=== PATIENT | female | born 1935 | race Caucasian/White ===

== ENCOUNTER 2017-07-19 12:21 | Emergency (ER) | payer MEDICARE, OTHER ==
[~2017-07-19] VITALS: Ht 167.6 cm; Wt 63.5 kg
[~2017-07-19 12:21] MED LIST: ARNUITY ELLIP100 MCG; ASPIRIN EC81 MG; CALCIUM-MAGNES1 EAC5; DOXEPIN HCL25 MG; ESTRADIOL0.5 MG; LOSARTAN-HCTZ1 EACH; MEDI SLEEP; NAPROXEN500 MG; OMEGA 3 1,0001 EACH; VITAMIN C500 MG; VITAMIN D5000 UNIT; VITAMIN E100 UNI3
[2017-07-19] MEDS ORDERED: TOPROL XL50 MG PO (12:45)
== END 2017-07-19 14:54 | disposition home or self-care (01) ==
LOC: ED 12:21
DX: R07.89 Other chest pain (principal); I10 Essential (primary) hypertension; F41.9 Anxiety disorder, unspecified; Z90.710 Acquired absence of both cervix and uterus; Z88.1 Allergy status to other antibiotic agents; Z88.2 Allergy status to sulfonamides; Z88.8 Allergy status to other drugs, medicaments and biological substances; Z79.82 Long term (current) use of aspirin; Z79.899 Other long term (current) drug therapy
CPT/HCPCS: 71101; 80053; 81001; 83690; 85025; 99283

== ENCOUNTER 2019-05-16 13:33 | Emergency (ER) | payer MEDICARE, OTHER ==
[~2019-05-16] VITALS: Ht 167.6 cm; Wt 63.5 kg
[~2019-05-16 13:33] MED LIST changes: +TOPROL XL50 MG PO
== END 2019-05-16 19:16 | disposition short-term general hospital (02) ==
LOC: ED 13:33
DX: K55.9 Vascular disorder of intestine, unspecified (principal); N17.9 Acute kidney failure, unspecified; I10 Essential (primary) hypertension; F41.9 Anxiety disorder, unspecified; Z88.1 Allergy status to other antibiotic agents; Z88.8 Allergy status to other drugs, medicaments and biological substances; Z88.2 Allergy status to sulfonamides; Z79.899 Other long term (current) drug therapy; Z79.82 Long term (current) use of aspirin
CPT/HCPCS: 51702; 51798; 74176; 80053; 83605; 83690; 85025; 96368; 99285-25; J0696; J7030

== ENCOUNTER 2021-05-25 23:05 | Inpatient (IN) | payer MEDICARE, OTHER ==
[~2021-05-25] VITALS: Ht 167.6 cm; Wt 62.1 kg
--- NOTE | ~2021-05-25 | DS ---
[facility] [address], [place] [address] Draft ADMISSION DATE: 05/25/2021 DISCHARGE DATE: 05/30/2021 REASON FOR ADMISSION: This 86-year-old white woman is a patient of Dr. Dionne Reno, had sudden onset at approximately 9:30 p.m. of severe and unrelenting left lower extremity pain. The patient is known to have atrial fibrillation, but not chronically anticoagulated. She had been on Coumadin for about a month and a half, which she did not tolerate (nausea) and therefore it was discontinued. She declined thrombin inhibitor therapy due to the excessive cost. She was instead taking aspirin daily. She has underlying problems with hypertension in addition to her atrial fibrillation. Her presentation in the emergency room was included evaluation by Dr. Alberto. Clinical findings showed a cold left lower extremity with marked pain. CT angiogram was performed showing occlusive thrombus in the left distal common femoral artery. Dr. Alberto had endeavor transferring elsewhere, but there was no available bed and I was subsequently consulted. Heparin drip was initiated at 800 units an hour after a bolus of 4500 units of heparin. She is admitted for further evaluation and care. PERTINENT PHYSICAL EXAMINATION: GENERAL: Showed an elderly white woman who is reasonably comfortable. CHEST: Shows normal respiratory excursion without tachypnea. Pulse is irregularly irregular consistent with atrial fibrillation. EKG confirmed this as well. EXTREMITIES: Showed the right lower extremity to have a femoral pulse of 3/3 in the groin and a dorsalis pedis pulse which was easily palpable. The left side showed only a faint femoral pulse on deep palpation and no evidence of dorsalis pedis or posterior tibial pulse on the left side. The foot was cool and pale. CT scan was reviewed confirming previously noted findings. The visualized infrarenal aorta has no evidence of severe stenosis, but only mild atherosclerosis and no sign of aneurysm. HOSPITAL COURSE: The patient was considered to have a probable embolism from her chronic atrial fibrillation without anticoagulation causing embolic phenomena to the left lower extremity. In the hosiery looper hours of May 26, she underwent left femoral arterial exploration with arterial embolectomy. Angiogram was performed as well showing good clearance of the clot and good flow to the superficial femoral artery and popliteal and at least two of its branches. She was maintained with a heparin drip postoperatively and monitored in the intensive PATIENT NAME: ADITHYA KRUEGER DISCHARGE SUMMARY DATE OF : 39 REPORT #: [id number] PHYSICIAN: AREN CATALAN MD PCP: DIONNE RENO MD REPORT IS CONFIDENTIAL AND NOT TO BE RELEASED WITHOUT AUTHORIZATION [facility] [address], [place] [address] Draft care unit. Palpable pulse was restored. Her heparin drip was titrated to beneficial effect and medical consultation was undertaken with Dr. Abernathy. She had no evidence of development of hematoma of the groin, although she did have some ecchymosis, no doubt related to exploration on full anticoagulation, but maintained good dorsalis pedis pulse and alevism of flow to the leg. By day of discharge, she is ambulating well. Has palpable dorsalis pedis pulse. The incision is healing well. The plan has been outlined for Xarelto 15 mg p.o. b.i.d. for the 1st 21 days and 20 mg daily thereafter. She will pursue the medication discount opportunity that has been presented to her. She will be needing to fill out various paperwork and she understands that. She is instructed to walk on a daily basis and keep the left groin incision clean and dry. Steri-Strips will be in place. FOLLOWUP PLANS: I will ask her to be seen by her primary provider within the next two weeks and I will be planning to see her back in four weeks or so. If she has problems in the meantime, she will let me know. DISCHARGE DIAGNOSES: 1. Acute embolism to left lower extremity related to atrial fibrillation without anticoagulation. 2. Status post left femoral arterial embolectomy with completion angiogram. 3. Hypertension. 4. Dyslipidemia. MD SARAH Osborn/DOML /[id number] cc: MD Dionne Phipps MD PATIENT NAME: ADITHYA KRUEGER DISCHARGE SUMMARY DATE OF : 39 REPORT #: [id number] PHYSICIAN: AREN CATALAN MD PCP: DIONNE RENO MD REPORT IS CONFIDENTIAL AND NOT TO BE RELEASED WITHOUT AUTHORIZATION [facility] [address], [place] [address] Alberto Copies: LOUIS ABERNATHY JONATHAN MD ~ PATIENT NAME: ADITHYA KRUEGER NHI DISCHARGE SUMMARY DATE OF : 39 REPORT #: [id number] PHYSICIAN: AREN CATALAN MD PCP: DIONNE RENO MD REPORT IS CONFIDENTIAL AND NOT TO BE RELEASED WITHOUT AUTHORIZATION
[~2021-05-25 23:05] MED LIST changes: -CALCIUM-MAGNES1 EAC5; +CALCIUM-MAGNES1 EAC5 PO; +COUMADIN4 MG PO; +DILTIAZEM 24HR240 M1 PO; -DOXEPIN HCL25 MG; +DOXEPIN HCL50 MG PO; +FLUTICASONE PRO16 GM NAS; +IRON325 M1 PO; +LIPITOR40 MG PO; +MAG-OXIDE400 MG PO; -OMEGA 3 1,0001 EACH; +OMEGA 3 1,0001 EACH PO; +PRILOSEC OTC20 MG PO; +PURE PO; +VITAMIN C500 M4 PO; -VITAMIN C500 MG; +VITAMIN D325 MCG PO; -VITAMIN D5000 UNIT; -VITAMIN E100 UNI3; +VITAMIN E400 UNIT PO; +XVITE TABLET1 EACH PO; +[UNRECOGNIZED DRUG - OTHER] PO
--- NOTE | 2021-05-27 15:53 | HP ---
[facility] [address] [place], [place] [address] Signed ADMISSION DATE: 05/26/2021 TIME: 2:30 a.m. PROBLEM: Acute left cold leg with atrial fibrillation. HISTORY: This 86-year-old white woman is a patient Dr. Dionne Reno, and had the sudden onset at approximately 9:30 p.m. of severe and unrelenting left lower extremity pain. The patient is known to have atrial fibrillation, but is not chronically anticoagulated. She had been on Coumadin, that "made her sick" and therefore this was discontinued quite sometime ago. She declined thrombin inhibitor therapy due to its excessive cost... she has taken aspirin instead. The patient presented to the emergency room, was evaluated by Dr. Alberto. A CT angiogram was performed, which showed findings consistent with left lower extremity acute occlusive thrombus in the left common femoral artery. Dr. Alberto had endeavored to transfer the patient for this acute vascular emergency calling [facility], [facility], and [facility], all of which were full and for which transport would be delayed even if a bed was available on the basis of no emergency medical personnel for transport. This has recently been a common phenomenon with the spike in hospitalization due to the viral pandemic, it is noted. After all of this, I was consulted. The patient was begun on heparin infusion after bolus of 4500 units of heparin and is now on an 800 unit drip. PAST MEDICAL HISTORY: Dominantly that of atrial fibrillation. She denies other problems other than hypertension. She is accompanied by her ongzyrdy-is-ike at this time. REVIEW OF SYSTEMS: She denies any chest pain or shortness of breath. She has no complaints of pain in the right lower extremity nor any abdominal or chest problems, otherwise. Electronically Signed By: AREN CATALAN MD 05/27/21 1553 PATIENT NAME: ADITHYA KRUEGER HISTORY AND PHYSICAL DATE OF : 39 REPORT #: [id number] PHYSICIAN: AREN CATALAN MD PCP: DIONNE RENO MD REPORT IS CONFIDENTIAL AND NOT TO BE RELEASED WITHOUT AUTHORIZATION [facility] [address] [place], [place] [address] Signed PHYSICAL EXAMINATION: GENERAL: A pleasant elderly white woman who is reasonably comfortable at the moment. CHEST: Shows normal respiratory excursion without tachypnea. Pulse is irregularly irregular consistent with atrial fibrillation. An EKG has been ordered. ABDOMEN: Soft and nontender. EXTREMITIES: Examination of the left lower extremity shows it to be cool and pale. I detect no dorsalis pedis pulse nor any femoral pulse at this time. On the right side, is a warm leg with a bounding right femoral pulse and easily palpable right dorsalis pedis pulse. CT scan report and images are reviewed. The visualized infrarenal aorta does have atherosclerosis, but no sign of aneurysm. The right lower extremity has good and patent dominant vessels including the tibioperoneal trunk and elsewhere. On the left side, the left common iliac and left internal iliac and the left external iliac are patent. There is an occlusive thrombus of the left common femoral artery. The left deep femoral (profunda) is patent. There are multifocal extensive occlusive and partially occlusive thrombus of the left superficial femoral artery. Limited blood flow in the distal vessel and occlusive thrombus limiting the assessment of clot burden apparently. The left popliteal is patent. There is occlusive thrombus in the distal vessel, however. There is nonopacification of the left anterior tibial and tibioperoneal trunk. ASSESSMENT: Most likely, the patient has suffered an acute arterial embolus to the left superficial femoral artery. I have recommended continued anticoagulation and exploration of the left common femoral artery with left arterial embolectomy as able. I discussed with the patient and her daughter the serious nature of this problem and the recommended treatment. We will continue with heparin infusion and provide surgical relief of the occlusive process as promptly as possible. She remains high hazard of complete or partial limb loss, it is noted. She obviously will need to be persistently anticoagulated, perhaps with a thrombin inhibitor if intolerant of Coumadin, but for now, arterial infusion of heparin is most appropriate to prevent progression of thrombus. They understand the special risks and agreed to proceed. Aren Catalan MD Electronically Signed By: AREN CATALAN MD 05/27/21 1553 PATIENT NAME: ADITHYA KRUEGER HISTORY AND PHYSICAL DATE OF : 39 REPORT #: [id number] PHYSICIAN: AREN CATALAN MD PCP: DIONNE RENO MD REPORT IS CONFIDENTIAL AND NOT TO BE RELEASED WITHOUT AUTHORIZATION [facility] [address] [place], [place] [address] Signed /JONO /[id number] cc: MD Dionne Vargas MD Copies: ASHLEY ALBERTO MD, JONATHAN MD ~ Electronically Signed By: AREN CATALAN MD 05/27/21 1553 PATIENT NAME: ADITHYA KRUEGER NHI HISTORY AND PHYSICAL DATE OF : 39 REPORT #: [id number] PHYSICIAN: AREN CATALAN MD PCP: DIONNE RENO MD REPORT IS CONFIDENTIAL AND NOT TO BE RELEASED WITHOUT AUTHORIZATION
--- NOTE | 2021-05-27 15:53 | OR ---
[facility] [address] [place] [address] Signed DATE OF OPERATION: 05/26/2021 SURGEON: Aren Catalan MD PROCEDURE: After left common femoral thromboembolectomy, a attachment was secured into the distal common femoral artery. Under direct infusion of radiocontrast, fluoroscopic control was used to ascertain patency of the vessel. Several static views and at least one fluoroscopic view showed patency of the common femoral and superficial femoral arteries down to and beyond the popliteal trifurcation. CONCLUDING DIAGNOSIS: Re-establishment of flow to the left lower extremity by arteriographic evidence. MD SARAH Osborn/MODL /[id number] Copies: ~ Electronically Signed By: AREN CATALAN MD 05/27/21 1553 PATIENT NAME: ADITHYA KRUEGER OPERATIVE REPORT DATE OF : 39 REPORT #: [id number] PHYSICIAN: AREN CATALAN MD PCP: DIONNE AVILA MD REPORT IS CONFIDENTIAL AND NOT TO BE RELEASED WITHOUT AUTHORIZATION
--- NOTE | 2021-05-27 15:53 | OR ---
[facility] [address] [place], [place] [address] Signed DATE OF OPERATION: 05/26/2021 SURGEON: Aren Catalan MD TIME: 05:40 a.m. PREOPERATIVE DIAGNOSES: 1. Acute left leg ischemia. 2. Atrial fibrillation (non-anticoagulated). POSTOPERATIVE DIAGNOSES: 1. Left superficial femoral artery embolism. 2. Atrial fibrillation (non-anticoagulated). PROCEDURES: 1. Exploration of left groin and left femoral arterial embolectomy (#5 Shaka catheter device). 2. Left femoral angiogram. WELDING MACHINE OPERATOR SUBMERGED ARC: Airam Ulrich, RN, and scrub nurse Tapan Dennis RN. ANESTHESIA: General endotracheal, Greg Cavazos CRNA INDICATIONS: This 86-year-old white woman presented to the emergency room with an acutely painful and cool left lower extremity. She was evaluated by Dr. Alberto and found to be pulseless on that side. The patient is known to have long-standing atrial fibrillation, but was intolerant of Coumadin anticoagulation and has not been on other anticoagulant. Likely is the probability of arterial embolism to the lower extremity. A CT angiogram was performed under the direction of Dr. Alberto, which confirmed this finding. Clinical examination shows her to have a good pulse on the right side including dorsalis pedis pulse and thus less likely to have advanced atherosclerosis and therefore less likely to have acute thrombosis of already diseased artery, but more likely embolism as clinically suggested. I have reviewed all this with the patient and her rgcgqbpt-ec-iut who attends to her and I have recommended emergency exploration of the groin and femoral arterial embolectomy. Heparin infusion and bolus had been started prior to my being Electronically Signed By: AREN CATALAN MD 05/27/21 1553 PATIENT NAME: ADITHYA KRUEGER OPERATIVE REPORT DATE OF : 39 REPORT #: [id number] PHYSICIAN: AREN CATALAN MD PCP: DIONNE RENO MD REPORT IS CONFIDENTIAL AND NOT TO BE RELEASED WITHOUT AUTHORIZATION [facility] [address] [place], [place] [address] Signed notified of this through the emergency room. The patient and her [id number] understand well the risk of bleeding, infection, failure to completely clear clot and of course recurrent disease. The possibility of limb loss is high and other cardiovascular complications given her underlying atrial fibrillation are also problematic but well understood by them both. FINDINGS: The [place] common femoral and superficial femoral arteries were quite soft and without significant atherosclerotic disease. The profunda femoris was in typical position, but there was an arterial branch, likely the medial circumflex artery posteriorly which was additionally controlled. Thrombectomy with #5 Randolph arterial embolectomy catheter delivered well-organized clot which extended from the distal common femoral artery. Additional small amounts of fresh clot from more distal artery was noted. An on-table angiogram showed excellent flow through the embolectomy segment with good bifurcation flow below the knee. At the conclusion of procedure, a palpable dorsalis pedis pulse was noted and flow has been clinically restored to the lower extremity. DESCRIPTION OF PROCEDURE: The patient was brought to the operating room and given a general endotracheal anesthetic. Ancef antibiotic was given preoperatively. The patient was on a heparin drip at 800 units an hour having undergone bolus of 4500 units in the ER. A frog leg position was maintained after placement of a Randolph catheter. The abdomen was prepped from costal margin distalward completely to the foot on the left and to just below the knee on the right. A longitudinal hockey-stick type incision was made in the left groin area with the faint pulse of the still patent common femoral artery noted. Dissection was carried through the subcutaneous tissue with electrocautery and sharp dissection. The femoral sheath was incised. The artery identified. Meticulous dissection was undertaken directly over the artery which was soft, but without palpable pulse in the distal portion of common femoral artery. Dissection was taken distalward onto the superficial femoral artery, which was dissected free in the usual way and encircled with the yellow vessel loop. The profunda femoris was dissected free laterally and ultimately dissection taken as proximal as reasonable on the common femoral artery. It too was encircled with the yellow vessel loop. The vessel loops occluded inflow and a small arteriotomy made with an #11 blade. There was still persistent rather vigorous flow. The occluding inflow seemed to be secure, but still there was significant flow from the arteriotomy site and therefore it was temporarily secured with a 6-0 Prolene. Additional dissection was undertaken in the posterior aspect of the common femoral artery demonstrating an Electronically Signed By: AREN CATALAN MD 05/27/21 1553 PATIENT NAME: ADITHYA KRUEGER NHI OPERATIVE REPORT DATE OF : 39 REPORT #: [id number] PHYSICIAN: AREN CATALAN MD PCP: DIONNE RENO MD REPORT IS CONFIDENTIAL AND NOT TO BE RELEASED WITHOUT AUTHORIZATION [address] [address] Signed accessory deep femoral vessel somewhat medially and posteriorly oriented. This likely represented a medial circumflex femoral vessel originating directly from the common femoral artery. This was also secured with a yellow vessel loop. Repeat occlusion of the vessels allowed for repeat arteriotomy this time showing good hemostasis. The arteriotomy was extended with Rose scissors distally revealing an underlying organized howard dark thrombus. Release of the proximal occluding vessel loop showed vigorous antegrade flow from the common femoral and some extrusion of minimal clot. A #5 Shaka embolectomy catheter was passed retrograde into the common femoral to as high as the aorta and gently withdrawn delivering no additional clot. The vigorous flow was secured with the vessel loop. With meticulous care, the embolectomy catheter was passed down the arteriotomy distalward into the superficial femoral artery. Careful withdrawal of the inflated balloon was undertaken delivering thrombus and reestablishment of some retrograde flow in the superficial femoral artery. Additional passes were taken down the profunda femorals (including aberrant one) showing vigorous retrograde flow. An additional pass was made in the superficial femoral artery at least to the level of the trifurcation gently inflated and carefully withdrawn and a small amount of dark thrombus noted. The artery was then infused with a syringe full of heparinized saline solution as was the proximal common femoral. Using the metal arterial attachment to a syringe an on-table angiogram was performed. This showed complete patency from the superficial femoral artery distalward including beyond the popliteal into trifurcation vessels. The arteriotomy was closed with a running 6-0 vascular Prolene suture prior to complete closure. Antegrade flow was used to "burp" the site of air and retrograde flow from the two profunda femoral branches also established. The arteriotomy was completed, and flow restored to the deep profunda areas and ultimately to the superficial femoral. Excellent palpable pulse was noted in the superficial femoral artery as well as the deep femoral branches. Examination of the left foot was undertaken demonstrating a Doppler signal in the posterior tibial artery. The wound was then closed with running 2-0 Vicryl suture after application of fibrin glue (Tisseel) to the arteriotomy site and surrounding tissue. Irrigation had been undertaken copiously prior to that. Photographs were taken throughout as well. The layers of the groin were reapproximated with 2-0 Vicryl and interrupted 2-0 Vicryl was used for the deep dermis. The skin was then closed with running subcuticular 3-0 Vicryl. Steri-Strips were applied as was an Acticoat silver sponge dressing. Electronically Signed By: AREN CATALAN MD 05/27/21 1553 PATIENT NAME: ADITHYA KRUEGER OPERATIVE REPORT DATE OF : 39 REPORT #: [id number] PHYSICIAN: AREN CATALAN MD PCP: DIONNE RENO MD REPORT IS CONFIDENTIAL AND NOT TO BE RELEASED WITHOUT AUTHORIZATION [facility] [address] [place] [id number] Signed Evaluation of the foot showed a palpable dorsalis pedis pulse with clinical mormonism of blood flow to the extremity. The patient was ultimately extubated and transported to the Intensive Care Unit directly for further management with a heparin infusion in place. Blood flow was considered to be less than 50 cc. Sponge, needle and instrument counts were reported as correct. MD SARAH Osborn/JONO /[id number] cc: Dr. Kong Reno MD Copies: DIONNE RENO MD ~ Electronically Signed By: AREN CATALAN MD 05/27/21 1553 PATIENT NAME: ADITHYA KRUEGER [facility] OPERATIVE REPORT DATE OF : 39 REPORT #: [id number] PHYSICIAN: AREN CATALAN MD PCP: DIONNE RENO MD REPORT IS CONFIDENTIAL AND NOT TO BE RELEASED WITHOUT AUTHORIZATION
--- NOTE | 2021-05-29 14:39 | PATH ---
[facility] [address] [place], [place] [address] Signed SPECIMEN(S): A THROMBUS SPECIMEN SOURCE: A. THROMBUS CLINICAL HISTORY: Thrombus. Left femoral embolectomy. FINAL PATHOLOGIC DIAGNOSIS: Thrombus, left femoral, embolectomy: - Consistent with thrombus. BRP:cml:C2NR MICROSCOPIC EXAMINATION: Histologic sections of all submitted blocks are examined by light microscopy. These findings, together with the gross examination, support the pathologic diagnosis. GROSS DESCRIPTION: The specimen, labeled "NE," and designated on the requisition "thrombus, thrombus + left lower ext.," is received in formalin and consists of four somewhat tubular-shaped, red, rubbery tissue pieces that are consistent with clotted blood and are from 0.4 up to 1.0 cm in diameter and from 0.8-3.2 cm long. A discrete mass/lesion is not grossly identified. Calcifications are not grossly identified. Transition Coach sections are submitted in one cassette (A1). AI (under the direct supervision of a pathologist) The Gross Description was prepared using a voice recognition system. The report was reviewed for accuracy; however, sound-alike word errors, addition and/or deletions may occur. If there is any question about this report, please contact Client Services. PERFORMING LABORATORY: The technical component was performed by [facility], [address] [place] [id number] (Rock Crusher: Meka Martinez MD; CLIA# [id number]). [facility], [address] [address] (CLIA# [id number]). Diagnostician: Rusty Ignacio MD Pathologist PATIENT NAME: ADITHYA KRUEGER PATHOLOGY DATE OF : 39 REPORT #: [id number] PHYSICIAN: [facility] PCP: DIONNE AVILA MD REPORT IS CONFIDENTIAL AND NOT TO BE RELEASED WITHOUT AUTHORIZATION [address] [place], [place] [address] Signed Electronically Signed 05/29/2021 Copies: ~ PATIENT NAME: ADITHYA KRUEGER PATHOLOGY DATE OF : 39 REPORT #: [id number] PHYSICIAN: [facility] PCP: DIONNE AVILA MD REPORT IS CONFIDENTIAL AND NOT TO BE RELEASED WITHOUT AUTHORIZATION
--- NOTE | 2021-05-29 22:13 | EKG ---
[facility] [address] [place] [address] Signed Atrial fibrillation with slow ventricular response Low voltage QRS Septal infarct , age undetermined Abnormal ECG No previous ECGs available Confirmed by RIMA PIERRE MD ([id number]) on 05/29/2021 10:07:59 PM Electronically Signed By: RIMA PIERRE MD 05/29/212211 Electronically Signed By: RIMA PIERRE MD 05/29/212211 Electronically Signed By: RIMA PIERRE MD 05/29/212211 Electronically Signed By: RIMA PIERRE MD 05/29/212211 Electronically Signed By: RIMA PIERRE MD 05/29/212211 Electronically Signed By: RIMA PIERRE MD 05/29/212212 Electronically Signed By: RIMA PIERRE MD 05/29/212212 Electronically Signed By: RIMA PIERRE MD 05/29/212212 Electronically Signed By: RIMA PIERRE MD 05/29/212212 Electronically Signed By: RIMA PIERRE MD 05/29/212212 Electronically Signed By: RIMA PIERRE MD 05/29/212212 Electronically Signed By: RIMA PIERRE MD 05/29/212212 Electronically Signed By: RIMA PIERRE MD 05/29/212212 Electronically Signed By: RIMA PIERRE MD 05/29/212212 Electronically Signed By: RIMA PIERRE MD 05/29/212212 Electronically Signed By: RIMA PIERRE MD 05/29/212212 Electronically Signed By: RIMA PIERRE MD 05/29/212212 Electronically Signed By: RIMA PIERRE MD 05/29/212212 Electronically Signed By: RIMA PIERRE MD 05/29/21 2213 PATIENT NAME: ADITHYA KRUEGER Electrocardiogram DATE OF : 39 PHYSICIAN: RIMA PIERRE MD REPORT #: [id number] REPORT IS CONFIDENTIAL AND NOT TO BE RELEASED WITHOUT AUTHORIZATION
[2021-05-30] MEDS ORDERED: XARELTO10 MG PO ×2 (10:54→10:56)
[2021-05-30] MEDS ORDERED: METOPROLOL TART25 MG PO (10:57)
[2021-05-30] MEDS ORDERED: ACETAMINOPHEN500 MG PO (10:58)
[2021-05-30] MEDS ORDERED: XARELTO15 MG PO (11:48)
--- NOTE | 2021-06-01 12:32 | DS ---
[facility] [address], [place] [address] Signed ADMISSION DATE: 05/25/2021 DISCHARGE DATE: 05/30/2021 REASON FOR ADMISSION: This 86-year-old white woman is a patient of Dr. Dionne Reno, had sudden onset at approximately 9:30 p.m. of severe and unrelenting left lower extremity pain. The patient is known to have atrial fibrillation, but not chronically anticoagulated. She had been on Coumadin for about a month and a half, which she did not tolerate (nausea) and therefore it was discontinued. She declined thrombin inhibitor therapy due to the excessive cost. She was instead taking aspirin daily. She has underlying problems with hypertension in addition to her atrial fibrillation. Her presentation in the emergency room was included evaluation by Dr. Alberto. Clinical findings showed a cold left lower extremity with marked pain. CT angiogram was performed showing occlusive thrombus in the left distal common femoral artery. Dr. Alberto had endeavor transferring elsewhere, but there was no available bed and I was subsequently consulted. Heparin drip was initiated at 800 units an hour after a bolus of 4500 units of heparin. She is admitted for further evaluation and care. PERTINENT PHYSICAL EXAMINATION: GENERAL: Showed an elderly white woman who is reasonably comfortable. CHEST: Shows normal respiratory excursion without tachypnea. Pulse is irregularly irregular consistent with atrial fibrillation. EKG confirmed this as well. EXTREMITIES: Showed the right lower extremity to have a femoral pulse of 3/3 in the groin and a dorsalis pedis pulse which was easily palpable. The left side showed only a faint femoral pulse on deep palpation and no evidence of dorsalis pedis or posterior tibial pulse on the left side. The foot was cool and pale. CT scan was reviewed confirming previously noted findings. The visualized infrarenal aorta has no evidence of severe stenosis, but only mild atherosclerosis and no sign of aneurysm. HOSPITAL COURSE: The patient was considered to have a probable embolism from her chronic atrial fibrillation without anticoagulation causing embolic phenomena to the left lower extremity. In the inventory analyst hours of May 26, she underwent left femoral arterial exploration with arterial embolectomy. Angiogram was performed as well showing good clearance of the clot and good flow to the superficial femoral artery and popliteal and at least two of its branches. She was maintained with a heparin drip postoperatively and monitored in the intensive Electronically Signed By: AREN CATALAN MD 06/01/21 1232 PATIENT NAME: ADITHYA KRUEGER DISCHARGE SUMMARY DATE OF : 39 REPORT #: [id number] PHYSICIAN: AREN CATALAN MD PCP: DIONNE RENO MD REPORT IS CONFIDENTIAL AND NOT TO BE RELEASED WITHOUT AUTHORIZATION [facility] [address] [place] [id number] Signed care unit. Palpable pulse was restored. Her heparin drip was titrated to beneficial effect and medical consultation was undertaken with Dr. Abernathy. She had no evidence of development of hematoma of the groin, although she did have some ecchymosis, no doubt related to exploration on full anticoagulation, but maintained good dorsalis pedis pulse and yarsanism of flow to the leg. By day of discharge, she is ambulating well. Has palpable dorsalis pedis pulse. The incision is healing well. The plan has been outlined for Xarelto 15 mg p.o. b.i.d. for the 1st 21 days and 20 mg daily thereafter. She will pursue the medication discount opportunity that has been presented to her. She will be needing to fill out various paperwork and she understands that. She is instructed to walk on a daily basis and keep the left groin incision clean and dry. Steri-Strips will be in place. FOLLOWUP PLANS: I will ask her to be seen by her primary provider within the next two weeks and I will be planning to see her back in four weeks or so. If she has problems in the meantime, she will let me know. DISCHARGE DIAGNOSES: 1. Acute embolism to left lower extremity related to atrial fibrillation without anticoagulation. 2. Status post left femoral arterial embolectomy with completion angiogram. 3. Hypertension. 4. Dyslipidemia. ADDENDUM: DISCHARGE MEDICATIONS: ADDED TO JOB [id number] - SMB: ADDENDUM: DISCHARGE MEDICATIONS: 1. Xarelto p.o. b.i.d. x21 days. 2. Xarelto 20 mg one tablet p.o. daily starting at completion of induction dose (at 21 Electronically Signed By: AREN CATALAN MD 06/01/21 1232 PATIENT NAME: ADITHYA KRUEGER DISCHARGE SUMMARY DATE OF : 39 REPORT #: [id number] PHYSICIAN: AREN CATALAN MD PCP: DIONNE RENO MD REPORT IS CONFIDENTIAL AND NOT TO BE RELEASED WITHOUT AUTHORIZATION [facility] [address] [place] [id number] Signed days), #30, refill 10. 3. Metoprolol 37.5 mg b.i.d. 4. Tylenol 1000 mg p.o. q. 6 hours p.r.n. pain. 5. Vitamin C 500 mg p.o. daily. 6. Tums one tablet p.o. daily. 7. Vitamin D 3000 units p.o. daily. 8. Doxepin 50 mg p.o. at bedtime. 9. Vitamin E 400 unit capsule daily. 10. Omeprazole 20 mg p.o. daily. 11. Diltiazem CD 240 mg p.o. at bedtime. 12. Arginine 500 mg p.o. daily. 13. Vitamin B complex and folate one tablet p.o. daily. 14. Fluticasone spray nasally daily as needed. 15. Magnesium oxide 400 mg p.o. daily p.r.n. MD SARAH Osborn/MODL /[id number] cc: MD Dr. Remy Haywood MD Copies: DIONNE RENO MD, BRIAN DO ~ Electronically Signed By: AREN CATALAN MD 06/01/21 1232 PATIENT NAME: ADITHYA KRUEGER [facility]I DISCHARGE SUMMARY DATE OF : 37 REPORT #: [id number] PHYSICIAN: AREN CATALAN MD PCP: DIONNE RENO MD REPORT IS CONFIDENTIAL AND NOT TO BE RELEASED WITHOUT AUTHORIZATION
== END 2021-05-30 12:25 | disposition home or self-care (01) | DRG 254 ==
LOC: ED 23:05 → MS 05-26 02:26 → CCU 05-26 02:26 → ED 05-26 02:26 → CCU 05-26 02:27 → MS 05-28 18:40
PROVIDERS: ADMIT Surgery; ATTEND Surgery
PROC: B41G1ZZ Fluoroscopy of Left Lower Extremity Arteries using Low Osmolar Contrast (ICD-10-PCS; 2021-05-26)
PROC: 04CL0ZZ Extirpation of Matter from Left Femoral Artery, Open Approach (ICD-10-PCS; principal; 2021-05-26 02:50)
DX: I74.3 Embolism and thrombosis of arteries of the lower extremities (principal); I48.0 Paroxysmal atrial fibrillation; Z20.822 Contact with and (suspected) exposure to COVID-19; E78.5 Hyperlipidemia, unspecified; G47.00 Insomnia, unspecified; K21.9 Gastro-esophageal reflux disease without esophagitis; I10 Essential (primary) hypertension; F41.9 Anxiety disorder, unspecified; Z88.1 Allergy status to other antibiotic agents; Z88.2 Allergy status to sulfonamides; Z88.8 Allergy status to other drugs, medicaments and biological substances; Z79.899 Other long term (current) drug therapy; Z90.710 Acquired absence of both cervix and uterus
CPT/HCPCS: 71045; 73706; 76000; 80053; 83605; 85025; 85610; 85730; 93005; 93010; 96374; 96375; 99284-25; C9803; J0690; J1100; J1644; J1885; J2001; J2270; J2370; J2405; J2704; J3010; J7030; J7040; J7121; Q9967; U0003

== ENCOUNTER 2021-12-26 19:23 | Inpatient (IN) | payer MEDICARE, OTHER ==
[~2021-12-26] VITALS: Ht 167.6 cm; Wt 72.0 kg
[~2021-12-26 19:23] MED LIST changes: +ACETAMINOPHEN500 MG PO; +METOPROLOL TART25 MG PO; +MULTI VITAMIN1 EACH PO; -VITAMIN D325 MCG PO; +VITAMIN D350 MC3 PO; +XARELTO10 MG PO; +XARELTO15 MG PO; +ZYRTEC10 M3 PO
--- NOTE | 2021-12-27 00:02 | NUR ---
PT ARRIVED TO THE FLOOR IN NO ACUTE DISTRESS. PT REPORTS FEELING ALOT BETTER. DENIES ANY AB PAIN, NO N/V , OR DISCOMFORT NOTED. PT IN AFIB RATE CONTROLLED . RESP EVEN AND UNLABORED. ORIENTED TO ROOM CALL LIGHT WITHIN REACH WILL CONTINUE TO MONITOR.
--- NOTE | 2021-12-27 01:48 | NUR ---
PT SLEEPING IN BED IN NO ACUTE DISTRESS. RESP EVEN AND UNLABORED. VSS CALL LIGHT WITHIN REACH WILL CONTINUE TO MONITOR.
--- NOTE | 2021-12-27 04:15 | NUR ---
PT LAYING IN BED IN NO ACUTE DISTRESS. PT DENIES ANY CONCERNS RESP EVEN AND UNLABORED. CALL LIGHT WITHIN REACH . OUTPUT DARK CATHY NOTED 275 ML FROM GARCIA SINCE ADMISSION AT 2330.
--- NOTE | 2021-12-27 05:48 | NUR ---
PT HAD EPISODE OF INCONT OF STOOL. LIQUID BM NOTED. PT REPORTS SHE FEELS BETTER AND DIDNT KNOW SHE WAS INCONT. PT RESP EVEN AND UNLABORED. CALL LIGHT WITHIN REACH [facility].
--- NOTE | 2021-12-27 06:35 | NUR ---
PT RESTING IN BED IN NO ACUTE DISTRESS. PT UOP AROUND 43 CC AN HOUR CATHY. BP SYSTOLIC HAVE BEEN IN THE 80'S SYSTOLIC MAP 60-65. MD NOTIFIED PER MD BOLUS TO BE GIVEN OVER 2HRS. WILL CONTINUE TO MONITOR.
--- NOTE | 2021-12-27 07:47 | NUR ---
REPORT RECIEVED, CARE OF PT ASSUMED AT THIS TIME. PT RESTING IN BED, DENIES ABDOMINAL PAIN. TAKEN OF 2 L NC AT THIS TIME. PTS LUNGS SOUND CLEAR THROUGHOUT. RR=20, SPO2 = 95% ON ROOM AIR. FLUID BOLUS INFUSING. LOPRESSOR HELD AT THIS TIME FOR SYSTOLIC BLOOD PRESSURE OF 90/ PLAN OF CARE FOR DAY ESTABLISHED. CALL LIGHT WITHIN REACH. WILL CONTINUE TO MONITOR.
--- NOTE | 2021-12-27 08:15 | NUR ---
FLUID BOLUS COMPLETED. CONTINUOUS FLUIDS AT 150 MLS/HR NOW INFUSING.
--- NOTE | 2021-12-27 08:55 | NUR ---
PATIENT RESTING IN BED. WOKE TO VOICE. VITALS CHARTED, CALL LIGHTIN EASY REACH
--- NOTE | 2021-12-27 09:15 | NUR ---
Spoke with Jessica. She states she lives alone in an apartment. There ae 5 steps into bedroom and 11 steps to laundry. States she is active and takes care of two of her small grandchildren weekly. She has a car and drives. She gets on well with her DIL and they have several outings per week. She is financially secure. She plans on dc to home when medically cleared.
--- NOTE | 2021-12-27 09:30 | NUR ---
PT INCONTINENT OF STOOL. SMALL LOOSE BM, BLOOD NOTED THROUGHOUT STOOL. DR RICHARDS NOTIFIED AT THIS TIME.
--- NOTE | 2021-12-27 09:51 | NUR ---
CALL LIGHT ANSWERED, THIS FIRE CONTROLMAN IN ROOM TO ASSIST PATIENT WITH INCONTINENT BM. BLOOD IN STOOL NOTED, RN NOTIFIED AND IN ROOM AT THIS TIME. NEW BRIEF PROVIDED. VITALS CHARTED, CALL LIGHT IN REACH
--- NOTE | 2021-12-27 10:29 | NUR ---
PT COMPLAINS OF ABDOMINAL CRAMPING, WAS INCONTINENT OF STOOL AND STATES PAIN RESOLVED WITH BOWEL MOVEMENT. PT REPOSITIONED IN BED. FLUIDS INFUSING. CALL LIGHT WITHIN REACH. WILL CONTINUE TO MONITOR.
--- NOTE | 2021-12-27 11:36 | NUR ---
ASSESSMENT UNCHANGED. PT DENIES PAIN OR DISCOMFORT AT THIS TIME. LUNGS ARE CLEAR THROUGHOUT. ACTIVE BOWEL TONES IN ALL FOUR QUADRANTS. ABDOMEN MILDLY DISTENDED BUT SOFT, NO PAIN WITH PALPATION. IV FLUIDS CONTINUE TO INFUSE. CALL LIGHT WITHIN REACH. DENIES FURTHER NEEDS AT THIS TIME.
[2021-12-27] MEDS ORDERED: WARFARIN SODIUM2 MG PO (11:53)
--- NOTE | 2021-12-27 12:29 | NUR ---
MED REC COMPLETE
--- NOTE | 2021-12-27 12:58 | NUR ---
DR RICHARDS IN TO ASSESS PT. PLAN OF CARE FOR AFTERNOON ESTABLISHED. ALL PT QUESTIONS ANSWERED. CALL LIGHT WITHIN REACH. WILL CONTINUE TO MONITOR.
--- NOTE | 2021-12-27 15:16 | NUR ---
PATIENT UP TO CHAIR WITH 1PA. PATIENT WAS INCONTINENT OF LIQUID STOOL IN BRIEF AND ALSO SAT ON BSC FOR BM. GARCIA EMPTIED AND CHARTED. LINENS CHANGED. CALL LIGHT AND PERSONAL ITEMS IN EASY REACH
--- NOTE | 2021-12-27 15:18 | NUR ---
PT SITTING UP IN THE CHAIR, ASSESSMENT COMPLETED. PT ALERT AND ORIENTED. LUNGS SOUND CLEAR THROUGHOUT. BOWEL SOUNDS ACTIVE. PT DENIES PAIN. CALL LIGHT WITHIN REACH. WILL CONTINUE TO MONITOR.
--- NOTE | 2021-12-28 07:30 | NUR ---
RECEIVED REPORT FROM CHELLY ALONSO. PT RESTING IN BED, CALL LIGHT WITHIN REACH. PT APPEARS JAUNDICED, RESPIRATIONS EVEN AND UNLABORED. PT DOES HAVE SLIGHT TREMOR NOTED, WITH RECURRENT TWITCHING IN THE LOWER EXTREMITIES.
--- NOTE | 2021-12-28 08:30 | NUR ---
RECEIVED REPORT FROM CHELLY ALONSO. PT AWAKE, ALERT, ORIENTED, AND SITTING UP IN BED WATCHING TV. PT REPORTS SHE IS HUNGRY AND IS HAVING NO ABD PAIN. WILL REQUEST CLEAR LIQUID DIET FROM . PT IN CHRONIC AFIB, LUNG SOUNDS CLEAR, ACTIVE BOWEL TONES, WITH NO PAIN REPORTED AND ONLY SLIGHT TENDERNESS "WHEN COUGHING". PT REPORTS SHE IS VERY ACTIVE, AND USES NO ASSISTIVE DEVICES AT HOME.
--- NOTE | 2021-12-28 09:30 | NUR ---
REPORT RECEIVED FROM CHELLY CRAIG. AWAITING PTS ARRIVAL TO MED/SURG.
--- NOTE | 2021-12-28 09:37 | NUR ---
REPORT GIVEN TO CHELLY RICARDO. PT WILL MOVE FROM CCU TO RM 122 WHEN [facility] IS READY TO RECEIVE HER.
--- NOTE | 2021-12-28 10:05 | NUR ---
REPORT GIVEN TO CHELLY RICARDO. PT TRANSFERRED TO ROOM VIA BED, ALL BELONGINGS SENT WITH PT.
--- NOTE | 2021-12-28 10:09 | NUR ---
PT ARRIVED FROM CCU BY BED. PT DENIES PAIN AND NAUSEA. IVs ASSESSED, WNL. IV TO RIGHT FORARM INFUSING. IV TO LEFT AC FLUSHED AND SALINE LOCKED PER PROTOCOL, ALCOHOL CAP APPLIED. PT ALERT AND ORIENTED TO ALL. PT UP TO CHAIR WITH STAND BY ASSIT. PT STEADY ON FEET AT THIS TIME. LUNG SOUNDS CLEAR. HEART TONES IRREGULAR. ABDOMEN SOFT TO PALPATION, BOWEL TONES ACTIVE. PT DENIES PAIN AT THIS TIME. PT DENIES ABDOMINAL, DISTENTION. PT DUE TO VOID AFTER GARCIA CATHETER REMOVAL. PT ORIENTED TO ROOM AND USE OF CALL LIGHT. NO ADDITIONAL REQUESTS OR COMPLAINTS. CALL LIGHT WITHIN REACH.
--- NOTE | 2021-12-28 10:33 | NUR ---
RN IN ROOM TO ASSIST PT UP TO BATHROOM. ABLE TO VOID 200CC AND SMALL BM, NO OTHER NEEDS AT THE MOMENT
--- NOTE | 2021-12-28 11:49 | NUR ---
THIS RN TO ROOM TO CHECK ON PT. MEDICATION DUE. PT REMAINS UP TO CHAIR. DRINKING CLEAR LIQUIDS FOR LUNCH. PT REPORTS SHE IS ANXIOUS TO TRY ADDITIONAL FOODS. MD NOTE STATES PLAN FOR FULL LIQUIDS TOMORROW. EDUCATION DONE WITH PT REGARDING GOING SLOW WITH DIET INCREASES. PT VERBALIZES UNDERSTANDING. VITAL SIGNS STABLE. MEDICATION GIVEN. PT DENIES PAIN AND NAUSEA. NO ADDITIONAL REQUESTS OR COMPLAINTS. CALL LIGHT WITHIN REACH.
--- NOTE | 2021-12-28 13:04 | NUR ---
THIS RN TO ROOM TO CHECK ON PT. PT BACK TO BED AND RESTING, PT REPORTS APPLE JUICE "GIVES ME GAS." PT REPORTS PASSING GAS AND REQUESTS TO REST FOR NOW. PT DECLINES AMBULATION AT THIS TIME. PT DENIES PAIN AND NAUSEA. NO ADDITIONAL REQUESTS OR COMPLAINTS. CALL LIGHT WITHIN REACH. BED RAILS UP.
--- NOTE | 2021-12-28 14:39 | NUR ---
AFTERNOON ASSESSMENT AND MEDICATION DUE. PT RESTING IN BED READING A BOOK. PT DENIES PAIN AND NAUSEA. IV INFUSING FLUIDS, FLUSHED, WNL, NO S/S OF PHLEBITIS NOTED. ABX STARTED. PT ALERT AND OREINTED TO ALL. PT REPROTS NORMAL STRENGTH. PT REMAINS STAND BY ASSIST. PT ENCORUAEGD TO AMBULATE AND STATES "MAYBE LATER THIS AFTERNOON. LUNG SOUNDS CLEAR. HEART TONES REMAIN IRREGULAR PER PTS BASELINE. BOWEL TONES HEARD, NOT ACTIVE EARLIER THIS MORNING. ABODMEN SOFT. PT DENIES ABDOMINAL DISTENTION. PT VOIDING QUANTITY SUFFIENT. PT DENIES ADDITIONAL REQUESTS OR COMPLAINTS. CALL LIGHT WITHIN REACH. BED RAILS UP.
--- NOTE | 2021-12-28 15:49 | NUR ---
PT CALL LIGHT ON. PT REQUESTS ASSISTANCE UP TO RESTROOM. STAND BY ASSIST UP TO RESTROOM. PT VOIDS 200ML WITHOUT ISSUE AND PERFORMS SELF DIONY CARE. DEPENDS NOTED TO HAVE LOOSE BOWEL MOVEMENT. PT REPROTS THIS WAS AN INCONTINANT BOWEL MOVEMENT, "I DIDN'T EVEN KNOW I WAS DIRTY." FRESH DEPENDS IN PALCE. STAND BY ASSIST UP TO CHAIR. MEDICATION GIVEN. PT DENIES ADDITIONAL REQUESTS OR COMPLAINTS. CALL LIGHT WITHIN REACH.
--- NOTE | 2021-12-28 17:41 | NUR ---
THIS RN TO ROOM TO CHECK ON PT. PT SITTING ON EDGE OF BED EATING CLEAR LIQUID DINNER TRAY. PT TOLERATING WELL WITH NO NASUEA. PT DENIES PAIN WELL. PT NOTED TO BE TANGLED IN IV LINE. PT ENCOURAGED TO CALL WHEN SHE WANTS TO MOVE AROUND SO THAT ASSISTANCE CAN BE PROVIDED WITH IV POLE. PT VERBALIZES UNDERSTANDING. NO ADDITIONAL REQUESTS OR COMPLAINTS. CALL LIGHT WITHIN REACH. BED RAILS UP.
--- NOTE | 2021-12-28 17:56 | NUR ---
PT TRANSFERED FROM CCU THIS SHIFT, HERE FOR ISCHEMIC CHOLITIS. PT UP WITH STAND BY ASSIST TO CHAIR AND RESTROOM THIS SHIFT. PT ADVANCED TO CLEAR LIQUID DIET, TOLERATING WELL WITHOUT NASUEA. PT DENEIS PAIN THIS SHIFT. BOWEL TONES ACTIVE WITH LOOSE BOWEL MOVEMENTS NOTED. PT HAD ONE INCONTINANT STOOL EPISDOE. IV FLUIDS CONTINUE, MONITORING KIDNEY FUNCTION LABS. PT VOIDING QUANTITY SUFFICIENT THIS SHIFT. PT ALERT AND ORIENTED THROUGHOUT SHIFT. PT USES CALL LIGTH AND MAKES NEEDS KNOWN.
--- NOTE | 2021-12-28 18:43 | NUR ---
THIS RN TO ROOM TO CHECK ON PT. PT RESTING IN BED WATCHING TV. PT DENIES PAIN AND NAUSEA AND STATES SHE HAS NO REQUESTS OR COMPLAINTS AT THIS TIME. PT ENCORUAGED TO CALL ANYTIME. CALL LIGHT WITHIN REACH. BED RAILS UP.
--- NOTE | 2021-12-28 22:00 | NUR ---
Has been up to void. All needs met. Denies any pain.
--- NOTE | 2021-12-28 23:10 | NUR ---
SLeeping soundly. Respirations even and unlabored
--- NOTE | 2021-12-29 01:50 | NUR ---
CALL LIGHT ON, PT SBA TO TOILET, BACK TO BED, NO FURTHER NEEDS
--- NOTE | 2021-12-29 04:20 | NUR ---
IN TO ASSIST PT WITH IV POLE TO THE TOILET, BACK TO BED, VS DONE, NO FURTHER NEEDS AT THIS TIME
--- NOTE | 2021-12-29 06:06 | NUR ---
Pt had an uneventful night. Denied pain and nausea thoughout the shift. Uses call light appropriately
--- NOTE | 2021-12-29 08:07 | NUR ---
INR elevated this morning at 3.4. SIgnificant drug intrx with Flagyl, Rocephin also contributes. Hold warfarin today per pharmacy protocol
--- NOTE | 2021-12-29 09:27 | NUR ---
PT TOLERATING CLEAR LIQUID DIET WELL. CONTINUES TO DENY NAUSEA AND AT 90% OF CLEAR LIQUID BREAKFAST TRAY. DIET ORDER ADVANCED TO FULL LIQUID PER DR. RICHARDS'S NOTE. CREAM OF WHEAT ORDERED FOR PT. PT DENIES ADDITIONAL REQUESTS OR COMPLAINTS. PT REMAINS UP TO CHAIR. CALL LIGHT WITHIN REACH. PTS PRIMARY RN UPDATED.
--- NOTE | 2021-12-29 11:36 | NUR ---
Patient in chair watching tv, no distress. Patient denies pain or nausea at this time. IV site patent. No current needs. Personal supplies and call light within reach.
[2021-12-29] MEDS ORDERED: METRONIDAZOLE500 MG PO (12:34)
[2021-12-29] MEDS ORDERED: CIPROFLOXACIN500 MG PO (12:34)
== END 2021-12-29 14:20 | disposition home or self-care (01) | DRG 871 ==
LOC: ED 19:23 → MS 22:33 → CCU 22:33 → MS 12-28 10:05
PROVIDERS: ADMIT Internal Medicine; ATTEND Internal Medicine
DX: A41.9 Sepsis, unspecified organism (principal); K55.039 Acute (reversible) ischemia of large intestine, extent unspecified; N17.9 Acute kidney failure, unspecified; D68.9 Coagulation defect, unspecified; I48.20 Chronic atrial fibrillation, unspecified; E83.52 Hypercalcemia; Z20.822 Contact with and (suspected) exposure to COVID-19; G47.00 Insomnia, unspecified; K21.9 Gastro-esophageal reflux disease without esophagitis; N18.32 Chronic kidney disease, stage 3b; E86.0 Dehydration; Z90.710 Acquired absence of both cervix and uterus; Z88.1 Allergy status to other antibiotic agents; Z88.2 Allergy status to sulfonamides; Z88.8 Allergy status to other drugs, medicaments and biological substances; Z79.899 Other long term (current) drug therapy
CPT/HCPCS: 36415; 51702; 74176; 80048; 80053; 81001; 83605; 83690; 83735; 85025; 85060; 85610; 85730; 94760; 99285-25; A9270; C9803; J0696; J1170; J2405; J7030; J7040; J7121; U0003